=== PATIENT | male | born 1940 | race Caucasian/White ===

== ENCOUNTER 2020-09-12 07:32 | Outpatient (CLI) | payer MEDICARE, SELFPAY ==
--- NOTE | ~2020-09-12 | CT_ITS ---
EXAMINATION: CT diagnostic chest w con EXAM DATE: 09/12/2020 08:34 INDICATION: Shortness of breath. TECHNIQUE: Spiral CT of the chest following intravenous injection of 75 mL Omnipaque 350. Axial, cor onal and sagittal images of the chest were reviewed. Coronal maximum intensity pixel images of chest reviewed. The dose-length product (DLP) for this examination was 883.97 mGy-cm. The exposure was t ailored according to patient size (auto mA exposure control), and iterative reconstruction (ASIR) was used as additional dose reduction technique. There is no prior study for comparison. FINDINGS: Mild dependent subsegmental atelectasis. No central pulmonary emboli. There are no pleura l or pericardial effusions. Tracheobronchial tree is patent. There is no mediastinal, hilar or ax illary lymphadenopathy. There is no pneumothorax. Heart normal in size. There is moderate coron barb arterial calcification, arterial sclerosis. Between the trapezius muscles, scapula and the midthoracic ribs there is ill-defined soft tissue, pro bably scapulothoracic bursitis. There is small sliding gastroesophageal hiatal hernia. Mild colonic d iverticulosis. There is 1.8 cm cystic lesion in the pancreatic body. The differential diagnosis includes pseudocyst, intraductal papillary mucinous neoplasm (IPMN), mucinous cystic neoplasm (MCN), and the less common serous cystadenoma and neuroendocrine tumor. Correlate for history of pancreatitis. Patient has diff use idiopathic skeletal hyperostosis (DISH). There are subacute to chronic left rib fractures assistant cook olaterally. IMPRESSION: 1. Incidental small pancreatic cystic lesion, differential considerations above. Recommend one-year follow-up CT abdomen with contrast. 2. Bilateral scapulothoracic bursitis 3. Subsegmental atelectasis. 4. Small hiatal hernia. 5. Mild transverse colonic diverticulosis. Reviewed, dictated and finalized at location B. IMPRESSION: 1. Incidental small pancreatic cystic lesion, differential considerations abov e. Recommend one-year follow-up CT abdomen with contrast. 2. Bilateral scapulothoracic bursitis 3. Subsegmental atelectasis. 4. Small hiatal hernia. 5. Mild transverse colonic diverticulosis.
[2020-09-12 08:12] LABS: Estimated Glomerular Filt Rate > 60
== END 2020-09-12 07:33 | disposition home or self-care (01) ==
LOC: ANHIMG 07:38
PROVIDERS: PCP Family Medicine
DX: R06.02 Shortness of breath (principal); R91.8 Other nonspecific abnormal finding of lung field; K44.9 Diaphragmatic hernia without obstruction or gangrene; K57.30 Diverticulosis of large intestine without perforation or abscess without bleeding
CPT/HCPCS: 71260; Q9967

== ENCOUNTER 2022-03-22 13:25 | Outpatient (CLI) | payer MEDICARE, SELFPAY | END 2022-03-22 13:26 | disposition home or self-care (01) | LOC: ANHAUDASC 13:28 | PROVIDERS: PCP Family Medicine; Visit Provider Otolaryngology | DX: H93.13 Tinnitus, bilateral (principal); H90.3 Sensorineural hearing loss, bilateral | CPT/HCPCS: 92557; 92567 ==